=== PATIENT | female | born 1980 | race Caucasian/White ===

== ENCOUNTER 2017-05-31 13:24 | Inpatient (IN) | payer OTHER ==
[2017-05-31] MEDS ORDERED: OLIVE OIL 118 ML BTL MISC PRN (15:07)
[2017-05-31] MEDS ORDERED: EPSOM SALT 454 GM TP PRN (15:07)
[2017-05-31] MEDS ORDERED: OXYTOCIN 20 UNIT in LR 1,000 ML IV PRN (15:07)
[2017-05-31] MEDS ORDERED: TERBUTALINE SULFATE 1 MG/ML VIAL IV PRN (15:07)
[2017-05-31 15:24] LABS: % IMMATURE GRANULYOCYTES 0.7 % (0.0-1.1); ABSOLUTE IMMATURE GRANULOCYTES 0.09 10^3/uL (0.00-0.10); ADD DIFF? NO; ADD MORPH? NO; ADD SCAN? NO; ATYPICAL LYMPHOCYTE FLAG 0 (0-99); FRAGMENT RBC FLAG 0 (0-99); HEMATOCRIT 41.3 % (38.0-47.0); HEMOGLOBIN 14.5 g/dL (12.6-16.3); LEFT SHIFT FLG 0 (0-99); LIPEMIA HEMOLYSIS FLAG 90 (0-99); MEAN CELL HEMOGLOBIN 32.5 pg (27.9-34.1); MEAN CELL HEMOGLOBIN CONCENTR. 35.1 g/dL (32.4-36.7); MEAN CELL VOLUME 92.6 fL (81.5-99.8); PLATELET CLUMPS FLAG 20 (0-99); PLATELET COUNT 149 10^3/uL (150-400); RED BLOOD CELL COUNT 4.46 10^6/uL (4.18-5.33); RED CELL DISTRIBUTION WIDTH 12.3 % (11.5-15.2)
[2017-05-31] MEDS: LR 1,000 ML IV PRN ×2 (15:49→18:25)
[2017-05-31] MEDS ORDERED: fentaNYL 2MCG/ML/BUP 0.1% RTU 100 ML BAG EP ONE (17:21)
[2017-05-31] MEDS ORDERED: BUPIVACAINE 0.25% 30 ML SDV ONE ×2 (17:21→22:08)
[2017-05-31] MEDS ORDERED: fentaNYL 100 MCG/2 ML INJ ONE ×2 (17:22→22:07)
[2017-05-31] MEDS ORDERED: PHENYLEPHRINE HCL 100 MCG/ML SYR ONE (17:22)
[2017-05-31] MEDS ORDERED: LIDOCAINE 1% 300 MG/30 ML SDV ONE (19:18)
[2017-05-31] MEDS ORDERED: OLIVE OIL 118 ML BTL ONE (19:19)
[2017-05-31] MEDS ORDERED: AMMONIA AROMATIC 1 EACH AMP IH ONE (19:19)
[2017-05-31] MEDS ORDERED: OXYTOCIN 10 UNIT/ML VIAL ONE ×2 (19:19→19:20)
[2017-05-31] MEDS ORDERED: TERBUTALINE SULFATE 1 MG/ML VIAL ONE (19:19)
[2017-05-31] MEDS ORDERED: MISOPROSTOL 200 MCG TAB ONE (19:20)
[2017-05-31] MEDS ORDERED: ACETAMINOPHEN 500 MG TAB PO ONE (20:33)
[2017-05-31] MEDS ORDERED: ACETAMINOPHEN 500 MG TAB ONE (20:35)
--- NOTE | 2017-05-31 20:37 | OBPROG ---
Labor Progress Note Assessment/Plan: Assessment: IUP at 40w3d SOOC, KIRBY, AROM with mec noted low grade temp - not tachy Plan: will proceed with pushing soon. will use Tylenol 05/31/17 20:34 05/31/17 20:35 05/31/17 20:39 Subjective/Intrapartum Course: 05/31/17 20:35 Pt doing ok - feeling pressure. Has been pretty comf with KIRBY until recently - pushed button Objective: 05/31/17 14:10 Patient ABO/Rh O POSITIVE 05/31/17 14:10 - SVE Dilation (cm): 9 Effacement (%): 100 Station: 0 Membranes: AROM Amniotic Fluid Color: Thick Meconium - Contraction Pattern Assessment Current Contraction Pattern: Irregular (on 4 mu/min pit, hard to read pattern) - FHR Assessment Rodrigez FHR (bpm): 130 FHR Pattern Variability: Moderate FHR Category: 2 (after AROM now variables noted, cont mod variability) Oxytocin Orders Assessment - Pre-Induction/Augmentation Assessment Gestational Age: 40 week(s) and 3 day(s) ICD10 Worksheet Patient Problems: Problems Problem Status Onset Normal labor Acute
--- NOTE | 2017-05-31 21:48 | GHP ---
[f rep st] HISTORY AND PHYSICAL DATE OF ADMISSION: 05/31/2017 HISTORY UPON ADMISSION: The patient is a 36-year-old, G1, P0 at 40 weeks and 3 days with an estimate d due date of 05/28/2017 based on a 6-week ultrasound. The patient had spontaneous onset of contract ions approximately 7 a.m. She was having light bloody show. Bag of water intact with good mov ement. Upon presentation, the patient was 2 cm dilated, 80% effaced at -2 station. She was observed and walked for comfort, was rechecked a couple hours later, and was unchanged. The patient was enco uraged to do a tub for comfort due to discomfort with the contractions. She had tried nitrous and di d not like the effects of that. After the patient was in the tub for approximately 1-2 hours, she fe lt increasing discomfort with the contractions and was changed to about 4 cm, 90% effaced. At that t marc, the patient was requesting and had an epidural placed. CARE: The patient has been with [facility] since 6 weeks' gestation. The patien t has had a relatively uncomplicated . The patient had Zika testing due to a travel to [place], and this testing was negative. Patient had had a rash after her travel and was sick for 2 days. Patient also developed bacterial vaginosis at 12 weeks and was treated with metronidazole. An ultra sound was performed at 20 weeks. The baby had no issues, and the estimated weight was the 82nd percentile. CARE LABS: Maternal blood type was O positive with negative antibody screen. RPR was nonr eactive. Rubella immune. Hepatitis B surface antigen negative. HIV negative. Cystic fibrosis, SMA , fragile X all negative. Thyroid testing was normal. Pap smear was normal. Gonorrhea and chlamydi a were negative. Verifi testing was negative with MSAFP negative. One-hour Glucola was normal. Hem atocrit was 39% that dropped only slightly to 38%. GBS culture was negative. PAST MEDICAL HISTORY: Only the possible Zika exposure but negative testing. PAST SURGICAL HISTORY: Fractured left wrist at the age of 22, fractured nose, odontectomy. ALLERGIES: The patient has no known drug allergies. CURRENT MEDICATIONS: Only vitamins. SOCIAL HISTORY: The patient is , lives with her , Jared. Patient is a nonsmoker. No alcohol or drug use. PHYSICAL EXAM: GENERAL: Upon admission, patient is a well-developed, well-nourished white female in moderate distress with contractions that built up while she was in the tub to an intense discomfort, requesting the epidural. Patient had low-grade temp at 36.9 upon admission. VITAL SIGNS: All othe rwise normal. See nursing documentation for full details. heart tones upon admission showed c ategory 1 tracing in the 130s with good variability and accelerations. Contractions every 2-4 minute s. Cervical exam as noted earlier and was 4 cm, 90% prior to epidural placement. Bag of water intac t. EXTREMITIES: Nontender. ASSESSMENT: Intrauterine at 40 weeks and 3 days, spontaneous onset of labor, now in early active labor. GBS negative. Epidural placement without problems. PLAN: After placement of the epidural, will continue and monitor labor progression. Add Pitocin if needed. /[id number]/MODL
[2017-05-31] MEDS ORDERED: ONDANSETRON 4 MG/2 ML VIAL IVP PRN (21:53)
[2017-05-31] MEDS ORDERED: PHENYLEPHRINE HCL 100 MCG/ML SYR IVP PRN (21:53)
--- NOTE | 2017-05-31 21:55 | POSTANESTH ---
Post Anesthetic Evaluation Cardiovascular Status: Normal, Stable, Similar to Pre-Op Cond Respiratory Status: Normal, Stable, Similar to Pre-op Cond. Level of Consciousness/Mental Status: Can Participate in Eval, Alert and Oriented Pain Control: Adequate, Prn Tx Ordered Nausea/Vomiting Control: Adequate, Prn Tx Ordered Complications Possibly Related to Anesthesia: None Noted
--- NOTE | 2017-05-31 21:59 | PREANESOB ---
Obstetric Pre-Anesthesia Info - General Info Proposed Procedure: Labor and delivery. : 1 Para: 0 SUSAN: 05/28/17 Gestational Age: 40 week(s) and 3 day(s) - Info Status: Postmature Monitors: External FHR Baseline (bpm): 135 FHR Pattern: Reassuring - Labor Status Cervical Dilation per last OB SVE: 4 Station per last OB SVE: 0 Amniotic Fluid Color: Thick Meconium Indications for Labor Analgesia: Pain Control Labor Epidural: Proposed Anesthesia ROS: Multiple prior general anesthetics. Allergies/Adverse Reactions: Allergy/AdvReac Type Severity Reaction Status Date / Time No Known Allergies Allergy Unverified 05/31/17 13:38 Home Medications: Medication Instructions Recorded Vit27&Calcium/Iron/FA 1 each PO DAILY 05/31/17 [ Rx 1 Tablet (RX)] Visit Medications: Generic Name Dose Route Start Last Admin Trade Name Freq PRN Reason Stop Dose Admin Diphenhydramine HCl 25 - 50 mg 05/31/17 21:53 Benadryl Injection IVP 11/27/17 21:52 Q6HRS PRN Itching Lactated Ringer's 1,000 mls @ 0 mls/hr 05/31/17 15:07 Lr IV 06/01/17 15:06 PRN PRN SEE PROTOCOL CONDITIONS Protocol Per Protocol Oxytocin 20 unit/ Lactated 1,002 mls @ 150 mls/hr 05/31/17 15:07 Ringer's IV PRN PRN Post- bleeding Fentanyl/Bupivacaine HCl 100 mls @ 0 mls/hr 05/31/17 22:00 Fentanyl/Bupivacaine/Ns 2 Mcg/Ml 0.1% (Premix EP 06/10/17 21:59 CONT TREV Protocol As Directed Lactated Ringer's 500 mls @ 0 mls/hr 05/31/17 22:00 Lr IV 11/27/17 21:59 CONT TREV As Directed Ibuprofen 600 mg 05/31/17 15:07 Motrin PO 11/27/17 15:06 Q6HRS PRN post , inflammation Magnesium Sulfate 454 gm 05/31/17 15:07 Epsom Salt TP 11/27/17 15:06 Q1H PRN perineal discomfort [place] Oil 118 ml 05/31/17 15:07 Sweet Oil MISC 11/27/17 15:06 ONCE PRN perineal massage Ondansetron HCl 4 mg 05/31/17 21:53 Zofran IVP 06/01/17 21:52 Q4HRS PRN Nausea/Vomiting, Can't Take PO Phenylephrine HCl 100 mcg 05/31/17 21:53 Neosynephrine IVP 11/27/17 21:52 .Q2M PRN Hypotension Terbutaline Sulfate 0.25 mg 05/31/17 15:07 Brethine IV 11/27/17 15:06 ONCE PRN Tachysystole Discontinued Medications Generic Name Dose Route Start Last Admin Trade Name Mahad PRN Reason Stop Dose Admin Acetaminophen 1,000 mg 05/31/17 20:33 05/31/17 20:46 Tylenol PO 05/31/17 20:34 1,000 mg ONCE ONE Administration Acetaminophen Confirm 05/31/17 20:35 Tylenol Administered 05/31/17 20:36 Dose 1,000 mg .ROUTE .STK-MED ONE Ammonia (Aromatic Spirit) Confirm 05/31/17 19:19 Ammonia Aromatic Administered 05/31/17 19:20 Dose 1 each IH .STK-MED ONE Bupivacaine HCl Confirm 05/31/17 17:21 Sensorcaine 0.25% Sdv Administered 05/31/17 17:22 Dose 30 ml .ROUTE .STK-MED ONE Fentanyl Confirm 05/31/17 17:22 Sublimaze Administered 05/31/17 17:23 Dose 100 mcg .ROUTE .STK-MED ONE Fentanyl/Bupivacaine HCl Confirm 05/31/17 17:21 Fentanyl/Bupivacaine/Ns 2 Mcg/Ml 0.1% (Premix Administered 05/31/17 17:22 Dose 100 ml EP .STK-MED ONE Lidocaine HCl Confirm 05/31/17 19:18 Lidocaine Hcl 1% Administered 05/31/17 19:19 Dose 300 mg .ROUTE .STK-MED ONE Misoprostol Confirm 05/31/17 19:20 Cytotec Administered 05/31/17 19:21 Dose 800 mcg .ROUTE .STK-MED ONE [place] Oil Confirm 05/31/17 19:19 Sweet Oil Administered 05/31/17 19:20 Dose 118 ml .ROUTE .STK-MED ONE Oxytocin Confirm 05/31/17 19:19 Pitocin Administered 05/31/17 19:20 Dose 30 unit .ROUTE .STK-MED ONE Oxytocin Confirm 05/31/17 19:20 Pitocin Administered 05/31/17 19:21 Dose 10 unit .ROUTE .STK-MED ONE Phenylephrine HCl Confirm 05/31/17 17:22 Neosynephrine Administered 05/31/17 17:23 Dose 1,000 mcg .ROUTE .STK-MED ONE Terbutaline Sulfate Confirm 05/31/17 19:19 Brethine Administered 05/31/17 19:20 Dose 1 mg .ROUTE .STK-MED ONE - Anesthesia History Response to Local Anesthetics: Normal Anesthesia & Operative History: No Prior Problems Family Anesthesia History: Negative - Social History Substance Use/Abuse: Denies - Vital Signs Blood Pressure: 105/62 Heart Rate: 74 Height/Weight (Nursing): Height 167.64 cm Weight 83.461 kg - Focused Exam Neck exam: FROM Mallampati Score: Class 1 Mouth exam: normal dental/mouth exam Pulmonary: no respiratory distress Cardiovascular: regular rate and rhythym Labs: 05/31/17 14:10 Patient ABO/Rh O POSITIVE 05/31/17 14:10 - Plan Anesthetic Plan: KIRBY Consent Signed and on Chart: Yes Patient/Guardian Understands and Agrees to Plan: Yes Urgent/Emergent Case: Jim martínez completed preop but documented later for safe timely pt care (Written consent signed after epidural.)
[2017-05-31] MEDS ORDERED: LR 500 ML IV SCH (22:00)
[2017-05-31] MEDS ORDERED: fentaNYL 200 MCG, BUPIVACAINE 0.5% 20 ML in NS 100 ML IV SCH (22:30)
[2017-06-01] MEDS ORDERED: LR 500 ML IV PRN (00:08)
[2017-06-01] MEDS ORDERED: OXYTOCIN 30 UNIT in NS 500 ML IV SCH (00:15)
[2017-06-01] MEDS ORDERED: CEFAZOLIN 2 GM/DEXTROSE/100 ML BAG IV ONE (02:53)
[2017-06-01] MEDS ORDERED: ceFAZolin 2 GM/DEXTROSE 100 ML IV ONE (02:55)
[2017-06-01] MEDS ORDERED: ACETAMINOPHEN 500 MG TAB PO ONE (03:09)
--- NOTE | 2017-06-01 03:46 | OBDEL ---
Info Type: Vaginal Presentation at Delivery: Vertex L&D Analgesia/Anesthesia Type: Epidural GBS+: No Intrapartum Medications: Generic Name Dose Route Start Last Admin Trade Name Freq PRN Reason Stop Dose Admin Lactated Ringer's 1,000 mls @ 0 mls/hr 05/31/17 15:07 05/31/17 18:25 Lr IV 06/01/17 15:06 1,000 mls PRN PRN Administration SEE PROTOCOL CONDITIONS Protocol Per Protocol Oxytocin 30 unit/ Sodium 503 mls @ 0 mls/hr 06/01/17 00:15 05/31/17 19:29 Chloride IV 11/28/17 00:14 503 mls CONT TREV Administration Protocol Per Protocol Ondansetron HCl 4 mg 05/31/17 21:53 06/01/17 00:40 Zofran IVP 06/01/17 21:52 4 mg Q4HRS PRN Administration Nausea/Vomiting, Can't Take PO Discontinued Medications Generic Name Dose Route Start Last Admin Trade Name Freq PRN Reason Stop Dose Admin Acetaminophen 1,000 mg 05/31/17 20:33 05/31/17 20:46 Tylenol PO 05/31/17 20:34 1,000 mg ONCE ONE Administration Acetaminophen 1,000 mg 06/01/17 03:09 06/01/17 03:29 Tylenol PO 06/01/17 03:10 1,000 mg ONCE ONE Administration - Care Provider Mechanics Handyman/PUBLIC HEALTH DIRECTOR: Fariba Joseph - Hospital Course Intrapartum: 05/31/17 20:35 Pt doing ok - feeling pressure. Has been pretty comf with KIRBY until recently - pushed button Indications for Delivery: Spontaneous Labor Vaginal Delivery - Delivery Provider Delivery Physician/CNM: Kelsie Almaraz - Labor and Delivery Onset of Contractions Date: 05/31/17 Onset of Contractions Time: 07:00 Onset of Contractions Type: Spontaneous Rupture of Membranes Date: 05/31/17 Rupture of Membranes Time: 20:29 Rupture of Membranes Type: Artificial Amniotic Fluid Color: Thick Meconium Dilation Complete Date: 05/31/17 Dilation Complete Time: 22:49 Placenta Delivery Date: 06/01/17 Placenta Delivery Time: 02:57 Total Hours of Labor: 19 Non-surgical Procedures: Amniotomy Laceration: 2nd Degree Repair: 2-0, 3-0, Vicryl Vaginal Sponge Count Correct: Yes Vaginal Needle Count Correct: Yes Vaginal Sweep Performed: Yes EBL: 450 Delivery Events: Retained Placenta (with manual extraction and currettage with Yuri's currette after 30 min retained) - Medications Labor Augmentation/Induction Methods Used: Pitocin Labor Augmentation/Induction Indication: Contraction Strength Inadequate (after KIRBY) [place] Data SUSAN: 05/28/17 Gestational Age: 40 week(s) and 4 day(s) Rodrigez Delivery Date: 06/01/17 Delivery Time: 02:25 Sex of : Female Score (1 Min): 7 Score (5 Min): 8 ICD10 Worksheet Patient Problems: Problems Problem Status Onset S/P dilation and curettage Acute Retained placenta Acute (spontaneous vaginal delivery) Acute
[2017-06-01] MEDS: IBUPROFEN 600 MG TAB PO PRN ×3 (04:36→17:12)
[2017-06-01] MEDS: DOCUSATE SODIUM 100 MG CAP PO PRN ×2 (09:07→20:46)
[2017-06-01] MEDS: HYDROCODONE/APAP 5/325 TAB PO PRN ×3 (09:07→19:02)
--- NOTE | 2017-06-01 19:28 | OBPP ---
Progress Note Assessment/Plan: Assessment: ppd# 0 s/p uncomplicated post course breast feeding Plan: routine post care 06/01/17 19:26 Subjective/ Course: 06/01/17 19:26 patient is doing well. pain is well controlled. normal lochia. working on breast feeding. denies headache and changes in vision. voiding without difficulty. Objective: 05/31/17 14:10 Patient ABO/Rh O POSITIVE 05/31/17 14:10 Temp Pulse Resp BP Pulse Ox 36.5 C 87 17 80/56 L 92 06/01/17 08:00 06/01/17 08:00 06/01/17 08:00 06/01/17 08:00 06/01/17 08:00 Uterine Position/Fundal Height: Umbilicus -2 Physical Exam - Physical Exam Neck: non-tender, full range of motion Respiratory: chest non-tender, lungs clear, normal breath sounds Cardiac/Chest: normal peripheral pulses, regular rate, rhythm Abdomen: normal bowel sounds, non-tender Extremities: normal range of motion, non-tender, normal inspection, normal capillary refill Skin: normal color, warm/dry Neuro/Psych: no motor/sensory deficits, alert, normal mood/affect, oriented x 3
[2017-06-01] MEDS ORDERED: HYDROCORTISONE 0.5% CREAM TP PRN (21:45)
[2017-06-02] MEDS: IBUPROFEN 600 MG TAB PO PRN ×4 (00:04→18:05)
[2017-06-02] MEDS: HYDROCODONE/APAP 5/325 TAB PO PRN ×4 (02:22→21:15)
[2017-06-02] MEDS: DOCUSATE SODIUM 100 MG CAP PO PRN ×2 (09:20→21:15)
[2017-06-03] MEDS: IBUPROFEN 600 MG TAB PO PRN ×3 (00:09→11:51)
--- NOTE | 2017-06-03 01:02 | OBPP ---
Progress Note Assessment/Plan: LATE ENTRY Assessment: [id number] s/p PPD#1 Plan: routine PP care cont ambulate plan d/c home tomorrow 06/03/17 00:58 Subjective/ Course: 06/01/17 19:26 patient is doing well. pain is well controlled. normal lochia. working on breast feeding. denies headache and changes in vision. voiding without difficulty. 06/03/17 00:59 Pt doing well, she has no complaints; she reports min bleeding and minimal pain. She is without difficulty. She reports having hemorrhoids. She is ambulating and voiding without difficulty. Objective: 06/02/17 04:30 Patient ABO/Rh O POSITIVE 05/31/17 14:10 Temp Pulse Resp BP Pulse Ox 36.3 C 80 20 104/66 95 06/02/17 20:00 06/02/17 20:00 06/02/17 20:00 06/02/17 20:00 06/02/17 20:00 Uterine Position/Fundal Height: Umbilicus -1, Midline Uterine Tone: Firm
[2017-06-03] MEDS: HYDROCODONE/APAP 5/325 TAB PO PRN ×2 (06:06→11:51)
--- NOTE | 2017-06-03 07:00 | OBGCSDC ---
General Delivery Information - General Info : 1 Para: 1 Abortions: 0 Type: Vaginal L&D Analgesia/Anesthesia Type: Epidural Admission Date: 05/31/17 Labs: Patient ABO/Rh O POSITIVE 05/31/17 14:10 Hct 32.7 % (38.0-47.0) L 06/02/17 04:30 - Hospital Course Intrapartum: 05/31/17 20:35 Pt doing ok - feeling pressure. Has been pretty comf with KIRBY until recently - pushed button : 06/01/17 19:26 patient is doing well. pain is well controlled. normal lochia. working on breast feeding. denies headache and changes in vision. voiding without difficulty. 06/03/17 00:59 Pt doing well, she has no complaints; she reports min bleeding and minimal pain. She is without difficulty. She reports having hemorrhoids. She is ambulating and voiding without difficulty. 06/03/17 07:00 S) Pt doing well, reports min pain and bleeding. she is ambulating and voiding without difficulty. She is . She desires discharge home today. O) VSS, afebrile constitutional: WNWF, A&Ox3 HEENT: normocephalic, atraumatic, supple Heart: RRR, No murmur Chest: CTA-B Abdomen: Soft, nontender Uterus: Firm at U-1 Lochia: Minimal rubra Perineum: healing well Extremities: Trace edema, and negative Veena's sign Neuro: Grossly normal A) 36 year-old S/P PPD#2 P) Discharge home today Continue Pelvic rest x6wks Discussed danger signs (infection, preeclampsia, depression, heavy bleeding, etc ) RTO in 4/6 weeks Vaginal - Delivery Provider Delivery Physician/CNM: Kelsie Almaraz - Diagnosis Labor: Spontaneous Rupture of Membranes Type: Artificial Amniotic Fluid Color: Thick Meconium Laceration: 2nd Degree Repair: 2-0, 3-0, Vicryl Delivery Events: Retained Placenta (with manual extraction and currettage with Yuri's currette after 30 min retained) - Procedures Non-surgical Procedures: Amniotomy - Delivery Non-surgical Procedures: Amniotomy EBL: 450 Data SUSAN: 05/28/17 Gestational Age: 40 week(s) and 6 day(s) Rodrigez Delivery Date: 06/01/17 Delivery Time: 02:25 Sex of : Female Score (1 Min): 7 Score (5 Min): 8 Discharge Information - Discharge Information Prescriptions: Ibuprofen [Motrin (*)] 600 mg PO Q6HRS PRN #30 tab PRN Reason: post , inflammation Iron Polysacch/Iron Heme Polyp [Bifera] 28 mg PO DAILY #30 tab Condition: Good
[2017-06-03] MEDS: DOCUSATE SODIUM 100 MG CAP PO PRN (08:33)
[2017-06-03 08:34] VITALS: BP 104/75; PULSE 84; RESP 16; TEMP 96.8; O2SAT 92
[2017-06-03] MEDS ORDERED: IRON POLYSAC/IRON HEME 28 MG TAB PO SCH (09:00)
== END 2017-06-03 12:05 | disposition home or self-care (01) | DRG 767 ==
LOC: FLD 13:24 → FOB 06-01 04:51
PROVIDERS: ADMIT Obstetrics & Gynecology; ATTEND Obstetrics & Gynecology
PROC: 10D17Z9 Manual Extraction of Products of Conception, Retained, Via Natural or Artificial Opening (ICD-10-PCS; principal; 2017-05-31)
PROC: 10907ZC Drainage of Amniotic Fluid, Therapeutic from Products of Conception, Via Natural or Artificial Opening (ICD-10-PCS; principal; 2017-05-31)
PROC: 10E0XZZ Delivery of Products of Conception, External Approach (ICD-10-PCS; principal; 2017-05-31)
PROC: 10D17ZZ Extraction of Products of Conception, Retained, Via Natural or Artificial Opening (ICD-10-PCS; principal; 2017-05-31)
PROC: 0KQM0ZZ Repair Perineum Muscle, Open Approach (ICD-10-PCS; principal; 2017-05-31)
DX: O48.0 Post-term pregnancy (principal); O70.1 Second degree perineal laceration during delivery; O73.0 Retained placenta without hemorrhage; O77.0 Labor and delivery complicated by meconium in amniotic fluid; Z3A.40 40 weeks gestation of pregnancy; Z37.0 Single live birth
CPT/HCPCS: J0690; J2370; J2405; J3010; J3105

== ENCOUNTER → 2017-06-21 | Outpatient (CLI) | payer OTHER | LOC: FLACT 12:33 | PROVIDERS: ATTEND Advanced Practice Midwife | DX: Z39.1 Encounter for care and examination of lactating mother (principal) | CPT/HCPCS: G0463 ==

== ENCOUNTER → 2018-11-09 | Outpatient (CLI) | payer OTHER | LOC: FIMAGING 12:44 | PROVIDERS: ATTEND Obstetrics & Gynecology | DX: O09.521 Supervision of elderly multigravida, first trimester (principal); Z3A.12 12 weeks gestation of pregnancy ==